=== PATIENT | male | born 2000 | race African-American/Black ===

== ENCOUNTER 2022-03-24 20:53 | Emergency (ER) | payer BC | END 2022-03-24 21:45 | disposition home or self-care (01) | LOC: FB.ED 20:53 | DX: S02.2XXA Fracture of nasal bones, initial encounter for closed fracture (principal); R04.0 Epistaxis; W50.0XXA Accidental hit or strike by another person, initial encounter; Y93.67 Activity, basketball | CPT/HCPCS: 99282; 99283 ==